=== PATIENT | male | born 1965 | race Caucasian/White ===

== ENCOUNTER 2018-01-16 16:58 | Emergency (ER) | payer BC, OTHER ==
[2018-01-16] MEDS ORDERED: Proparacaine 0.5% Opth 15 ML BOT ONE (17:33)
[2018-01-16] MEDS ORDERED: Fluorescein Opthalmic Strip ONE (17:33)
== END 2018-01-16 17:50 | disposition home or self-care (01) ==
LOC: SCSER 16:58
DX: H11.31 Conjunctival hemorrhage, right eye (principal)
CPT/HCPCS: 99282